=== PATIENT | female | born 1975 | race Caucasian/White ===

== ENCOUNTER 2021-03-05 21:01 | Observation (INO) ==
[2021-03-05 22:14] LABS: Basophils % 0.1 %; Eosinophils # 0.2 K/mcL (0.0-0.6); Eosinophils % 2.1 %; Hematocrit 42.4 % (35.3-44.9); Hemoglobin 13.7 g/dL (11.5-15.4); Immature Granulocytes % 0.2 % (0-4); Lymphocytes % 35.5 %; Mean Corpuscular HGB Conc 32.3 g/dL (31.6-35.5); Mean Corpuscular Hemoglobin 28.6 pg (28.0-33.3); Mean Corpuscular Volume 88.5 fL (83.0-100.0); Mean Platelet Volume 10.8 fL (9.4-12.4); Monocytes # 0.5 K/mcL (0.0-1.3); Monocytes % 6.2 %; Neutrophils # 4.7 K/mcL (1.6-8.9); Platelet Count 273 K/mcL (140-400); Red Blood Count 4.79 M/mcL (3.82-4.97); Red Cell Distribution Width 12.9 % (11.5-14.5); Segmented Neutrophils % 55.9 %; White Blood Count 8.4 K/mcL (4.3-11.1)
[2021-03-05 22:31] LABS: BUN/Creatinine Ratio 13 (6-26); Blood Urea Nitrogen 11 mg/dL (6-20); Calcium 9.4 mg/dL (8.6-10.3); Carbon Dioxide 27 mEq/L (23-29); Chloride 104 mEq/L (98-107); Glucose 102 mg/dL (70-105); Osmolality,Calculated 288 (280-300); Potassium 3.6 mEq/L (3.5-5.1); Sodium 139 mEq/L (136-145); eGFR For African Americans > 60 (> 60); eGFR For Non-African Americans > 60 (> 60)
[2021-03-05 22:32] LABS: Troponin I < 0.03 ng/mL (< 0.04)
[2021-03-06] MEDS ORDERED: Nitroglycerin 0.4 MG TAB.SUBL SL ONE ×2 (00:15→13:52)
[2021-03-06] MEDS ORDERED: Aspirin 81 MG TAB.CHEW PO ONE (00:15)
[2021-03-06] MEDS: Nitroglycerin 0.4 MG TAB.SUBL SL SCH ×2 (00:49→05:46)
[2021-03-06 00:59] LABS: Thyroid Stimulating Hormone 1.886 mcIU/mL (0.340-5.600)
[2021-03-06] MEDS ORDERED: Melatonin 3 MG TABLET PO PRN (03:27)
[2021-03-06] MEDS ORDERED: Naloxone 0.4 MG/ML INJ IVP PRN (03:27)
[2021-03-06] MEDS ORDERED: Ondansetron 4 MG/2 ML VIAL IVP PRN (03:27)
[2021-03-06] MEDS ORDERED: Acetaminophen 325 MG TABLET PO PRN (03:27)
[2021-03-06] MEDS ORDERED: Morphine Sulfate 2 MG/ML SYRINGE IVP ONE (04:22)
[2021-03-06 05:14] LABS: Basophils % 0.3 %; Eosinophils # 0.2 K/mcL (0.0-0.6); Eosinophils % 2.7 %; Hematocrit 38.7 % (35.3-44.9); Hemoglobin 12.8 g/dL (11.5-15.4); Immature Granulocytes % 0.3 % (0-4); Lymphocytes # 2.8 K/mcL (0.6-4.6); Lymphocytes % 42.5 %; Mean Corpuscular HGB Conc 33.1 g/dL (31.6-35.5); Mean Corpuscular Hemoglobin 29.4 pg (28.0-33.3); Mean Corpuscular Volume 88.8 fL (83.0-100.0); Mean Platelet Volume 10.4 fL (9.4-12.4); Monocytes # 0.5 K/mcL (0.0-1.3); Monocytes % 7.7 %; Neutrophils # 3.1 K/mcL (1.6-8.9); Platelet Count 238 K/mcL (140-400); Red Blood Count 4.36 M/mcL (3.82-4.97); Segmented Neutrophils % 46.5 %; White Blood Count 6.6 K/mcL (4.3-11.1)
[2021-03-06 05:19] LABS: Prothrombin Time 11.9 Seconds (9.4-12.1)
[2021-03-06 05:32] LABS: BUN/Creatinine Ratio 19 (6-26); Blood Urea Nitrogen 14 mg/dL (6-20); Calcium 9.2 mg/dL (8.6-10.3); Carbon Dioxide 26 mEq/L (23-29); Chloride 106 mEq/L (98-107); Glucose 109 mg/dL (70-105); Osmolality,Calculated 287 (280-300); Potassium 3.5 mEq/L (3.5-5.1); Sodium 138 mEq/L (136-145); eGFR For African Americans > 60 (> 60); eGFR For Non-African Americans > 60 (> 60)
[2021-03-06 05:35] LABS: Chol/HDL Ratio 4.1 (0-4.9); Magnesium 1.9 mg/dL (1.6-2.6)
[2021-03-06] MEDS ORDERED: Regadenoson 0.4 MG/5 ML SYRINGE IVP ONE (06:47)
[2021-03-06] MEDS ORDERED: BuPROPion XL (24 HR) 150 MG TABLET PO SCH (09:00)
[2021-03-06 11:23] VITALS: BP 133/83
[2021-03-06] MEDS: Nitroglycerin 0.4 MG TAB.SUBL SL PRN ×2 (13:55→14:05)
== END 2021-03-06 15:58 | disposition home or self-care (01) ==
LOC: EMEROOARM 21:01 → 3BNU 21:01 → SUATTDRO 03-06 02:50 → 3BNU 03-06 03:26
PROVIDERS: ADMIT Family Medicine; ATTEND Internal Medicine